=== PATIENT | male | born 1985 | race Caucasian/White ===

== ENCOUNTER 2021-10-31 12:58 | Emergency (ER) | payer MEDICARE, MEDICAID ==
[~2021-10-31] VITALS: Ht 168 cm; Wt 83.9 kg
--- NOTE | 2021-10-31 13:31 | ED Chest Pain ---
General Chief Complaint: Chest Pain Stated Complaint: CHEST PAIN/NAUSEA/DIZZY/WEAKNESS Nursing Triage Note: PT STATES MID CHEST PAIN, SOB, HEAVINESS, ALMOST PASSED OUT. FATIGUE BUT STATES THAT HE WORKS A LOT. STATES THIS HAPPENED ABOUT A YR AGO AND HE WAS TOLD HE NEEDED TO BE FLOWN TO BUT PT REFUSED. PT DOES NOT SEE A DR REGULARLY. PT WAS SENT HERE FROM WORK Source: patient Exam Limitations: no limitations (VICK MARTIN APRN) History of Present Illness Date Seen by Provider: Oct 31, 2021 Time Seen by Provider: 13:25 Initial Comments Patient presents to the emergency department today with chest pain, shortness of breath, fatigue and heaviness that started yesterday. States that he was working today when his symptoms started. Was told by his employer that he needed to come here and get evaluated. History of similar symptoms about a year ago and states that he needed to be flown to but he declined due to family obligations at home. He followed up and wore a holter monitor and states that he never heard the results of that. Has not tried to take anything at home for pain. Reports that he has been doing a lot of heavy lifting at work recently. Pain is reproducible to palpation. Does have a PCP. He is concerned that he is having a mild heart attack. States that is what his work told him his symptoms were consistent with. Timing/Duration: 1-2 days Severity/Quality: moderate, aching Location: substernal Radiation: no radiation Activities at Onset: none Prior CP/Workup: echocardiography, other (holter monitor) Modifying Factors: worse with breathing, worse with palpation ASA po STAFF ASSISTANT: No NTG SL STAFF ASSISTANT: No Associated Symptoms: No abdominal pain, No back pain, No diaphoresis, No dizziness, No fatigue, No fever/chills, No headache, No heartburn, No nausea/vomiting; shortness of breath; No syncope, No weakness (VICK MARTIN APRN) Allergies and Home Medications Allergies Coded Allergies: Penicillins (Verified Allergy, Severe, 10/31/21) morphine (Verified Allergy, Severe, 10/31/21) Patient Home Medication List Home Medication List Reviewed: Yes (VICK MARTIN APRN) Review of Systems Review of Systems Constitutional: No chills, No diaphoresis, No dizziness, No fever, No weakness EENTM: No Symptoms Reported Respiratory: Denies Cough, Denies Orthopnea; Shortness of Air; Denies Stridor, Denies Wheezing Cardiovascular: Chest Pain; Denies Lightheadedness, Denies Palpitations, Denies Syncope Gastrointestinal: Denies Abdominal Pain, Denies Diarrhea, Denies Nausea, Denies Vomiting Musculoskeletal: No back pain, No joint swelling, No muscle stiffness, No muscle cramps, No muscle weakness Skin: No pruritus, No rash Psychiatric/Neurological: Denies Anxiety, Denies Headache, Denies Numbness, Denies Tingling, Denies Weakness (VICK MARTIN APRN) All Other Systems Reviewed Negative Unless Noted: Yes (VICK MARTIN APRN) Past Qchysal-Zhdhky-Fhexmc Hx Family Medical History Reviewed Nursing Family Hx (VICK MARTIN APRN) Physical Exam Vital Signs Vital Signs - First Documented 10/31/21 10/31/21 13:23 14:50 Temp 36.6 Pulse 59 Resp 16 B/P (MAP) 137/100 (112) Pulse Ox 61 O2 Delivery Room Air (SARAH PHILLIPS MD) Vital Signs Capillary Refill : Less Than 3 Seconds (VICK MARTIN APRN) Height, Weight, BMI Height: '" Weight: lbs. oz. kg; 29.00 BMI Method: General Appearance: No Apparent Distress, WD/WN; No Anxious HEENT: PERRL/EOMI, Pharynx Normal, Moist Mucous Membranes Neck: Full Range of Motion, Normal Inspection, Non Tender, Supple Respiratory: Lungs Clear, Normal Breath Sounds, No Accessory Muscle Use, No Respiratory Distress, Other (anterior chest wall tenderness to palpation) Cardiovascular: Regular Rate, Rhythm, No Edema, Normal Peripheral Pulses, Bradycardia Gastrointestinal: Normal Bowel Sounds, No Organomegaly, Non Tender, Soft Extremity: Normal Capillary Refill, Normal Inspection, Normal Range of Motion, Non Tender Neurologic/Psychiatric: Alert, Oriented x3, No Motor/Sensory Deficits Skin: Normal Color, Warm/Dry (VICK MARTIN APRN) Progress/Results/Core Measures Results/Orders Lab Results Laboratory Tests Test 10/31/21 13:24 Range/Units White Blood Count 6.4 4.3-11.0 10^3/uL Red Blood Count 4.71 4.30-5.52 10^6/uL Hemoglobin 15.1 13.3-17.7 g/dL Hematocrit 41 40-54 % Mean Corpuscular Volume 87 80-99 fL Mean Corpuscular Hemoglobin 32 25-34 pg Mean Corpuscular Hemoglobin Concent 37 H 32-36 g/dL Red Cell Distribution Width 12.2 10.0-14.5 % Platelet Count 269 130-400 10^3/uL Mean Platelet Volume 9.4 9.0-12.2 fL Immature Granulocyte % (Auto) 0 % Neutrophils (%) (Auto) 52 42-75 % Lymphocytes (%) (Auto) 34 12-44 % Monocytes (%) (Auto) 11 0-12 % Eosinophils (%) (Auto) 2 0-10 % Basophils (%) (Auto) 1 0-10 % Neutrophils # (Auto) 3.3 1.8-7.8 10^3/uL Lymphocytes # (Auto) 2.2 1.0-4.0 10^3/uL Monocytes # (Auto) 0.7 0.0-1.0 10^3/uL Eosinophils # (Auto) 0.1 0.0-0.3 10^3/uL Basophils # (Auto) 0.0 0.0-0.1 10^3/uL Immature Granulocyte # (Auto) 0.0 0.0-0.1 10^3/uL Prothrombin Time 14.3 12.2-14.7 SEC INR Comment 1.1 0.8-1.4 Activated Partial Thromboplast Time 39 H 24-35 SEC Sodium Level 138 135-145 MMOL/L Potassium Level 3.6 3.6-5.0 MMOL/L Chloride Level 104 98-107 MMOL/L Carbon Dioxide Level 24 21-32 MMOL/L Anion Gap 10 5-14 MMOL/L Blood Urea Nitrogen 14 7-18 MG/DL Creatinine 0.88 0.60-1.30 MG/DL Estimat Glomerular Filtration Rate 116 BUN/Creatinine Ratio 16 Glucose Level 96 70-105 MG/DL Calcium Level 10.2 H 8.5-10.1 MG/DL Corrected Calcium 8.5-10.1 MG/DL Magnesium Level 2.0 1.6-2.4 MG/DL Total Bilirubin 1.1 H 0.1-1.0 MG/DL Aspartate Amino Transf (AST/SGOT) 16 5-34 U/L Alanine Aminotransferase (ALT/SGPT) 17 0-55 U/L Alkaline Phosphatase 66 40-136 U/L Myoglobin 43.2 10.0-92.0 NG/ML Troponin I < 0.028 <0.028 NG/ML Total Protein 8.0 6.4-8.2 GM/DL Albumin 5.0 H 3.2-4.5 GM/DL (SARAH PHILLIPS MD) My Orders Orders - SARAH PHILLIPS MD Ekg Tracing (10/31/21 13:20) (SARAH PHILLIPS MD) Medications Given in ED Current Medications Medications Dose Ordered Sig/Magalys Route Start Time Stop Time Status Last Admin Dose Admin Ketorolac Tromethamine 30 mg ONCE ONCE IVP 10/31/21 13:45 10/31/21 13:46 DC 10/31/21 13:50 30 MG (SARAH PHILLIPS MD) Vital Signs/I&O 10/31/21 10/31/21 10/31/21 13:23 13:50 14:50 Temp 36.6 36.6 36.6 Pulse 59 59 Resp 16 16 B/P (MAP) 137/100 (112) 125/84 Pulse Ox 61 O2 Delivery Room Air Room Air (SARAH PHILLIPS MD) Blood Pressure Mean: 112 Progress Progress Note : Progress Note Patient presents to the emergency room for chest pain. He is concerned that he is having a "mild" heart attack. Has been doing a lot of heavy lifting at work. Has not taken anything at home for pain. Pain is reproducible to palpation. Will check labs to rule out cardiac origin and Chest XR. 1430: Spoke to patient in regards to labs and imaging. His pain is completely resolved at this time with Toradol IV. Reasons to return to the ER were discussed with patient and family. All questions were answered prior to discharge. (VICK MARTIN APRN) Initial ECG Impression Date: Oct 31, 2021 Initial ECG Impression Time: 13:25 Initial ECG Rate: 54 Initial ECG Rhythm: Normal Sinus, S.Fili (with sinus arrhythmia) Initial ECG Impression: Normal (VICK MARTIN APRN) Diagnostic Imaging Diagonstic Imaging: Xray Plain Films/CT/US/NM/MRI: chest Comments NAME: BLAIR PHILLIPS [facility] REC#: [id number] PT STATUS: DEP ER : [id number] PHYSICIAN: VICK MARTIN APRN ADMIT DATE: 10/31/21/ER Signed Date of Exam:10/31/21 CHEST 1 VIEW, AP/PA ONLY EXAMINATION: Chest 1 view HISTORY: Chest pain COMPARISON: None available. FINDINGS: The lungs are clear without edema or pneumonia. No pleural effusion or pneumothorax. Heart size is normal. IMPRESSION: 1. Clear lungs. Dictated by: Dictated on workstation # [id number] Dict: 10/31/21 1403 Trans: 10/31/21 1507 [facility] [id number] Interpreted by: SMOOTH MARES MD Electronically signed by: SMOOTH MARES MD 10/31/21 1507 (VICK MARTIN APRN) Departure Impression Primary Impression: Chest wall pain Disposition: HOME, SELF-CARE Condition: Stable Departure-Patient Inst. Decision time for Depature: 14:34 (VICK MARTIN APRN) Patient Instructions: Chest Pain That Is Not Caused by the Heart (DC) Add. Discharge Instructions: 1. Home and rest. 2. Push fluids. 3. Alternate Tylenol/Ibuprofen as needed for pain. 4. Consider using heating pad to chest as needed for pain. 5. Follow up with PCP as needed. 6. Return here if worse or concerns. All discharge instructions reviewed with patient and/or family. Voiced understanding. Work/School Note: Work Release Form Date Seen in the Emergency Department: Oct 31, 2021 Return to Work: Nov 01, 2021 Restrictions: No Restrictions ATTENDING NOTE: I was attending physician physically present and available for consultation in the emergency department during the care of this patient. I was not directly involved in the delivery of care or decision making process for this patient during this specific encounter. (SARAH PHILLIPS MD) VICK MARTIN APRN Oct 31, 2021 13:31 SARAH PHILLIPS MD Oct 31, 2021 19:07
[2021-10-31 13:40] LABS: BASOPHILS % (AUTO) 1 % (0-10); EOSINOPHILS # (AUTO) 0.1 10^3/uL (0.0-0.3); EOSINOPHILS % (AUTO) 2 % (0-10); HEMATOCRIT 41 % (40-54); HEMOGLOBIN 15.1 g/dL (13.3-17.7); LYMPHOCYTES # (AUTO) 2.2 10^3/uL (1.0-4.0); LYMPHOCYTES % (AUTO) 34 % (12-44); MEAN CORPUSCULAR HEMOGLOBIN 32 pg (25-34); MEAN CORPUSCULAR HGB CONC 37 g/dL (32-36); MEAN CORPUSCULAR VOLUME 87 fL (80-99); MEAN PLATELET VOLUME 9.4 fL (9.0-12.2); MONOCYTES # (AUTO) 0.7 10^3/uL (0.0-1.0); MONOCYTES % (AUTO) 11 % (0-12); NEUTROPHILS # (AUTO) 3.3 10^3/uL (1.8-7.8); NEUTROPHILS % (AUTO) 52 % (42-75); PLATELET COUNT 269 10^3/uL (130-400); WHITE BLOOD COUNT 6.4 10^3/uL (4.3-11.0)
[2021-10-31 13:43] LABS: CHLORIDE 104 MMOL/L (98-107); POTASSIUM 3.6 MMOL/L (3.6-5.0); SODIUM 138 MMOL/L (135-145)
[2021-10-31 13:44] LABS: CALCIUM 10.2 MG/DL (8.5-10.1)
[2021-10-31 13:45] LABS: GLUCOSE 96 MG/DL (70-105); INR 1.1 (0.8-1.4); PROTHROMBIN TIME PATIENT 14.3 SEC (12.2-14.7)
[2021-10-31] MEDS ORDERED: KETOROLAC 30 MG/ML VIAL IVP ONE (13:45)
[2021-10-31 13:46] LABS: CARBON DIOXIDE 24 MMOL/L (21-32)
[2021-10-31 13:47] LABS: BILIRUBIN,TOTAL 1.1 MG/DL (0.1-1.0)
[2021-10-31 13:48] LABS: ALKALINE PHOSPHATASE 66 U/L (40-136)
[2021-10-31 13:49] LABS: CREATININE SERUM 0.88 MG/DL (0.60-1.30); GFR ESTIMATED 116
[2021-10-31 13:50] LABS: BUN/CREATININE RATIO 16
[2021-10-31 13:52] LABS: ALANINE AMINOTRANSFERASE 17 U/L (0-55)
--- NOTE | 2021-10-31 14:06 | Diagnostic Imaging Report ---
EXAMINATION: Chest 1 view HISTORY: Chest pain COMPARISON: None available. FINDINGS: The lungs are clear without edema or pneumonia. No pleural effusion or pneumothorax. Heart size is normal. IMPRESSION: 1. Clear lungs. Dictated by: Dictated on workstation # [id number]
[2021-10-31 14:50] VITALS: BP 125/84
== END 2021-10-31 14:49 | disposition home or self-care (01) ==
LOC: EDUNIT# 12:58 → ER 13:04
DX: R07.89 Other chest pain (principal); Z28.310 Unvaccinated for COVID-19
CPT/HCPCS: 36415; 71045; 80053; 83735; 83874; 84484; 85025; 85610; 85730; 93005; 93041

== ENCOUNTER 2022-05-22 07:25 | Emergency (ER) | payer MEDICAID, MEDICARE ==
[~2022-05-22] VITALS: Ht 165.1 cm; Wt 87.0 kg
[2022-05-22 08:21] LABS: BASOPHILS % (AUTO) 1 % (0-10); EOSINOPHILS # (AUTO) 0.1 10^3/uL (0.0-0.3); EOSINOPHILS % (AUTO) 2 % (0-10); HEMATOCRIT 43 % (40-54); HEMOGLOBIN 16.1 g/dL (13.3-17.7); LYMPHOCYTES # (AUTO) 1.9 10^3/uL (1.0-4.0); LYMPHOCYTES % (AUTO) 32 % (12-44); MEAN CORPUSCULAR HEMOGLOBIN 32 pg (25-34); MEAN CORPUSCULAR HGB CONC 37 g/dL (32-36); MEAN CORPUSCULAR VOLUME 87 fL (80-99); MEAN PLATELET VOLUME 9.6 fL (9.0-12.2); MONOCYTES # (AUTO) 0.8 10^3/uL (0.0-1.0); MONOCYTES % (AUTO) 13 % (0-12); NEUTROPHILS # (AUTO) 2.9 10^3/uL (1.8-7.8); NEUTROPHILS % (AUTO) 51 % (42-75); PLATELET COUNT 252 10^3/uL (130-400); WHITE BLOOD COUNT 5.8 10^3/uL (4.3-11.0)
--- NOTE | 2022-05-22 08:22 | ED Chest Pain ---
General Chief Complaint: Chest Pain Stated Complaint: CHEST PAIN Nursing Triage Note: TO ED VIA POV AND AMBULATORY TO ROOM 6 WITH C/O WAKING UP WITH CP TO CENTER OF CHEST. 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 PT STATES RELAXING AND EASING HIS MIND MAKES IT FEEL BETTER AND STRESS MAKES IT WORSE. 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 PT STATES HE HAS A HX OF ANXIETY. FAMILY HX OF FATHER DYING AT 49 YO FROM HEART ATTACK. History of Present Illness Date Seen by Provider: May 22, 2022 Time Seen by Provider: 07:29 Allergies and Home Medications Allergies Coded Allergies: Penicillins (Verified Allergy, Severe, 10/31/21) morphine (Verified Allergy, Severe, Hives, 05/22/22) Past Cvcitms-Unfqkq-Kpnlmp Hx Patient Social History Tobacco Use?: Yes E-Cig or Vaping type used: Nicotine Substance use?: No Alcohol Use?: No Immunizations Up To Date Influenza Vaccine Up-to-Date: No; Not Current Past Medical History Surgery/Hospitalization HX: FAMILY HEART HX, ANXIETY, BI POLAR, ADHD, OCD, DEPRESSION, CLEFT PALATE SURGERY WHEN HE WAS A CHILD Physical Exam Vital Signs Vital Signs - First Documented 05/22/22 07:30 Temp 35.6 Pulse 71 Resp 16 B/P (MAP) 134/100 (111) Pulse Ox 99 O2 Delivery Room Air Capillary Refill : Less Than 3 Seconds Height, Weight, BMI Height: '" Weight: lbs. oz. kg; 31.00 BMI Method: Progress/Results/Core Measures Results/Orders Lab Results Laboratory Tests Test 05/22/22 07:40 Range/Units White Blood Count 5.8 4.3-11.0 10^3/uL Red Blood Count 4.99 4.30-5.52 10^6/uL Hemoglobin 16.1 13.3-17.7 g/dL Hematocrit 43 40-54 % Mean Corpuscular Volume 87 80-99 fL Mean Corpuscular Hemoglobin 32 25-34 pg Mean Corpuscular Hemoglobin Concent 37 H 32-36 g/dL Red Cell Distribution Width 12.2 10.0-14.5 % Platelet Count 252 130-400 10^3/uL Mean Platelet Volume 9.6 9.0-12.2 fL Immature Granulocyte % (Auto) 0 % Neutrophils (%) (Auto) 51 42-75 % Lymphocytes (%) (Auto) 32 12-44 % Monocytes (%) (Auto) 13 H 0-12 % Eosinophils (%) (Auto) 2 0-10 % Basophils (%) (Auto) 1 0-10 % Neutrophils # (Auto) 2.9 1.8-7.8 10^3/uL Lymphocytes # (Auto) 1.9 1.0-4.0 10^3/uL Monocytes # (Auto) 0.8 0.0-1.0 10^3/uL Eosinophils # (Auto) 0.1 0.0-0.3 10^3/uL Basophils # (Auto) 0.0 0.0-0.1 10^3/uL Immature Granulocyte # (Auto) 0.0 0.0-0.1 10^3/uL Prothrombin Time 14.2 12.2-14.7 SEC INR Comment 1.0 0.8-1.4 Activated Partial Thromboplast Time 35 24-35 SEC Sodium Level 140 135-145 MMOL/L Potassium Level 3.8 3.6-5.0 MMOL/L Chloride Level 107 98-107 MMOL/L Carbon Dioxide Level 22 21-32 MMOL/L Anion Gap 11 5-14 MMOL/L Blood Urea Nitrogen 14 7-18 MG/DL Creatinine 0.98 0.60-1.30 MG/DL Estimat Glomerular Filtration Rate 104 BUN/Creatinine Ratio 14 Glucose Level 109 H 70-105 MG/DL Calcium Level 9.7 8.5-10.1 MG/DL Corrected Calcium 8.5-10.1 MG/DL Magnesium Level 2.2 1.6-2.4 MG/DL Total Bilirubin 1.1 H 0.1-1.0 MG/DL Aspartate Amino Transf (AST/SGOT) 17 5-34 U/L Alanine Aminotransferase (ALT/SGPT) 26 0-55 U/L Alkaline Phosphatase 65 40-136 U/L Myoglobin 41.2 10.0-92.0 NG/ML Troponin I < 0.028 <0.028 NG/ML Total Protein 7.7 6.4-8.2 GM/DL Albumin 4.8 H 3.2-4.5 GM/DL My Orders Orders - SARAH PHILLIPS MD Ekg Tracing (05/22/22 07:29) Monitor-Rhythm Ecg Trace Only (05/22/22 07:29) Cbc With Automated Diff (05/22/22 08:14) Magnesium (05/22/22 08:14) Comprehensive Metabolic Panel (05/22/22 08:14) Myoglobin Serum (05/22/22 08:14) Protime With Inr (05/22/22 08:14) Partial Thromboplastin Time (05/22/22 08:14) O2 (05/22/22 08:14) Ed Iv/Invasive Line Start (05/22/22 08:14) Troponin I [place] (05/22/22 08:14) Vital Signs/I&O 05/22/22 05/22/22 05/22/22 07:30 07:30 08:23 Temp 35.6 35.6 Pulse 71 71 Resp 16 15 B/P (MAP) 134/100 (111) 119/82 Pulse Ox 99 95 O2 Delivery Room Air Room Air Room Air Blood Pressure Mean: 111 Initial ECG Impression Date: May 22, 2022 Initial ECG Impression Time: 07:35 Initial ECG Rate: 57 Initial ECG Rhythm: Normal Sinus Initial ECG Intervals: Normal Initial ECG Impression: Normal Comment Sinus rhythm with variable rate with no ST elevation or depression. No abnormal intervals or axis deviation. Departure Departure-Patient Inst. Referrals: NO,LOCAL PHYSICIAN (PCP/Family) Primary Care Physician SARAH PHILLIPS MD May 22, 2022 08:21
[2022-05-22 08:23] VITALS: BP 119/82
[2022-05-22 08:26] LABS: ALBUMIN 4.8 GM/DL (3.2-4.5); CHLORIDE 107 MMOL/L (98-107); POTASSIUM 3.8 MMOL/L (3.6-5.0); PROTHROMBIN TIME PATIENT 14.2 SEC (12.2-14.7); SODIUM 140 MMOL/L (135-145)
[2022-05-22 08:28] LABS: CALCIUM 9.7 MG/DL (8.5-10.1)
[2022-05-22 08:29] LABS: GLUCOSE 109 MG/DL (70-105); TOTAL PROTEIN 7.7 GM/DL (6.4-8.2)
[2022-05-22 08:30] LABS: CARBON DIOXIDE 22 MMOL/L (21-32)
[2022-05-22 08:31] LABS: BILIRUBIN,TOTAL 1.1 MG/DL (0.1-1.0)
[2022-05-22 08:32] LABS: ALKALINE PHOSPHATASE 65 U/L (40-136)
[2022-05-22 08:33] LABS: CREATININE SERUM 0.98 MG/DL (0.60-1.30); GFR ESTIMATED 104
[2022-05-22 08:34] LABS: BUN/CREATININE RATIO 14
[2022-05-22 08:35] LABS: ALANINE AMINOTRANSFERASE 26 U/L (0-55)
[2022-05-22 08:36] LABS: MAGNESIUM 2.2 MG/DL (1.6-2.4)
== END 2022-05-22 08:23 | disposition left against medical advice (07) ==
LOC: EDUNIT# 07:25 → ER 07:26
DX: R07.9 Chest pain, unspecified (principal); F17.290 Nicotine dependence, other tobacco product, uncomplicated; Z28.310 Unvaccinated for COVID-19
CPT/HCPCS: 36415; 80053; 83735; 83874; 84484; 85025; 85610; 85730; 93005; 93041